=== PATIENT | female | born 1950 | race Caucasian/White ===

== ENCOUNTER 2016-08-21 08:09 | Day surgery (SDC) | payer OTHER ==
[2016-08-21] MEDS ORDERED: Midazolam 1 MG/ML 2 ML SDV ONE (08:31)
[2016-08-21] MEDS ORDERED: fentaNYL 100 MCG/2 ML SDV ONE (08:31)
[2016-08-21] MEDS ORDERED: Propofol 200 MG/20 ML SDV ONE (08:31)
[2016-08-21] MEDS ORDERED: Sodium Chloride 0.9% 1,000 ML IV SCH (09:30)
[2016-08-21 11:34] VITALS: BP 125/82
--- NOTE | 2016-08-21 14:48 | OR ---
DATE OF PROCEDURE: 08/21/2016 PROCEDURE: EGD. FINDINGS: Ulceration of gastric pouch. COMPLICATIONS: None. DEPARTMENT STORE GENERAL MANAGER: None. ANESTHETIC: MAC. PREOPERATIVE DIAGNOSES: A pleasant 65-year-old female, who had a Gudelia-en-Y at another facility several years ago. The patient had epigastric pain. POSTOPERATIVE DIAGNOSES: A pleasant 65-year-old female, who had a Gudelia-en-Y at another facility several years ago. The patient had epigastric pain. RISKS: Risks, benefits, alternatives, and limitations, including, but not limited to infection, bleeding, and perforation were explained to the patient. PROCEDURE IN DETAIL: The patient was placed in left lateral decubitus position. The EGD scope was introduced and advanced atraumatically into the Gudelia-en-Y. There was no evidence of narrowing or stricturing, but in the gastric pouch itself, there was no ulceration noted. Biopsies were performed to evaluate for H. pylori. The Gudelia-en-Y limb was normal. No other abnormalities noted. The patient tolerated the procedure well. Ender Peterson MD /[id number]
== END 2016-08-21 10:55 | disposition home or self-care (01) ==
LOC: JP.SDS 08:09
PROVIDERS: ATTEND Surgery
DX: K31.89 Other diseases of stomach and duodenum (principal); I10 Essential (primary) hypertension; J44.9 Chronic obstructive pulmonary disease, unspecified; F17.210 Nicotine dependence, cigarettes, uncomplicated
CPT/HCPCS: 43239; 88305; J2250; J2704; J3010; J7040

== ENCOUNTER 2022-08-15 09:52 | Emergency (ER) | payer MEDICARE ==
[2022-08-15] MEDS ORDERED: HYDROmorphone 0.5 MG/0.5 ML Syringe IVPUSH ONE (10:32)
[2022-08-15] MEDS ORDERED: Sodium Chloride 0.9% 10 ML Syringe FLUSH PRN (10:33)
[2022-08-15] MEDS ORDERED: Ketorolac 30 MG/ML SDV IVPUSH ONE (10:44)
[2022-08-15 12:40] VITALS: BP 144/62; PULSE 80
== END 2022-08-15 14:30 | disposition home or self-care (01) ==
LOC: JP.ED 09:52
DX: S72.115A Nondisplaced fracture of greater trochanter of left femur, initial encounter for closed fracture (principal); M25.552 Pain in left hip; M81.0 Age-related osteoporosis without current pathological fracture; E78.00 Pure hypercholesterolemia, unspecified; I10 Essential (primary) hypertension; J44.9 Chronic obstructive pulmonary disease, unspecified; J45.909 Unspecified asthma, uncomplicated; Z86.73 Personal history of transient ischemic attack (TIA), and cerebral infarction without residual deficits; Z79.82 Long term (current) use of aspirin; Z79.899 Other long term (current) drug therapy; W18.30XA Fall on same level, unspecified, initial encounter
CPT/HCPCS: 73502; 73700; 96374; 99284; J1885; J3490

== ENCOUNTER 2024-05-12 06:09 | Day surgery (SDC) | payer MEDICARE ==
[2024-05-12] MEDS: Lactated Ringers 1,000 ML IV SCH (06:39)
[2024-05-12] MEDS ORDERED: fentaNYL 50 MCG/ML SDV ONE (06:45)
[2024-05-12] MEDS ORDERED: Propofol 200 MG/20 ML SDV ONE ×2 (06:45→08:16)
[2024-05-12 09:35] VITALS: BP 139/64; PULSE 74
== END 2024-05-12 09:47 | disposition home or self-care (01) ==
LOC: JP.SDS 06:09
PROVIDERS: ATTEND Surgery
DX: Z12.11 Encounter for screening for malignant neoplasm of colon (principal); I10 Essential (primary) hypertension; F17.200 Nicotine dependence, unspecified, uncomplicated; Z80.0 Family history of malignant neoplasm of digestive organs
CPT/HCPCS: G0105; J1642; J2704; J3010; J7120